=== PATIENT | female | born 1980 | race Caucasian/White ===

== ENCOUNTER 2020-10-14 14:57 | Outpatient (REF) | payer OTHER, SELFPAY ==
--- NOTE | ~2020-10-14 | US_ITS ---
EXAMINATION: US DIAGNOSTIC ULTRASOUND BREAST, LEFT CLINICAL INFORMATION: Lump superiorly. COMPARISON: Mammography of same day. TECHNIQUE: Ultrasound of the breast is performed with real-time knight scale imaging and color Doppler. FINDINGS: Targeted left breast ultrasound superior aspect did not demonstrate any abnormal cystic or solid mass. No region of abnormal distal sound shadowing appreciated. There is large amount of this breast parenchyma present. Results are provided to the patient at time of visit by the technologist. US/US breast LT limited IMPRESSION: No mammographic or ultrasound findings to suggest malignancy. ASSESSMENT: BI-RADS 1: Negative RECOMMENDATION: Clinical follow-up
--- NOTE | ~2020-10-14 | MM_ITS ---
EXAMINATION: MM DIAGNOSTIC DIGITAL TOMOSYNTHESIS, BILATERAL US TARGETED BREAST, LEFT CLINICAL INFORMATION: Left breast lump superiorly. The lifetime risk of breast cancer based on the Tyrer-Cuzick Model is 10.5%. COMPARISON: Mammography: None TECHNIQUE: Digital breast tomosynthesis is performed in both the craniocaudal and mediolateral oblique views along with computer-aided detection (CAD). Synthesized 2D images are generated from the tomosynthesis. Targeted left breast ultrasound. FINDINGS: The breasts are extremely dense, which lowers the sensitivity of mammography (ACR BI-RADS breast composition category D). There are no significant masses, abnormal calcifications, or other abnormalities. Targeted left breast ultrasound superior aspect did not demonstrate any abnormal cystic or solid mass. No region of abnormal distal sound shadowing appreciated. There is a large amount of dense breast parenchyma present. Results are provided to the patient at time of visit by the technologist. MM/MM tomosynthesis diagnostic BI IMPRESSION: No mammographic or ultrasound findings to suggest malignancy. ASSESSMENT: BI-RADS 1: Negative RECOMMENDATION: Clinical follow up. This patient's information was entered into a reminder system with a target due date for their next mammogram.
== END 2020-10-14 14:58 | disposition home or self-care (01) ==
LOC: HO.MAMMO 14:57
PROVIDERS: Visit Provider Internal Medicine
DX: N63.25 Unspecified lump in the left breast, overlapping quadrants (principal)
CPT/HCPCS: 76642; 77062; 77066

== ENCOUNTER 2020-10-29 08:01 | Outpatient (REF) | payer OTHER, SELFPAY ==
[2020-10-31 20:52] LABS: HPV mRNA E6/E7 rflx Not Detected (Not Detected)
== END 2020-10-29 08:02 | disposition home or self-care (01) ==
LOC: HO.LAB 08:01
PROVIDERS: PCP Internal Medicine; Visit Provider Advanced Practice Midwife
DX: Z01.419 Encounter for gynecological examination (general) (routine) without abnormal findings (principal); E66.01 Morbid (severe) obesity due to excess calories; Z68.41 Body mass index [BMI] 40.0-44.9, adult
CPT/HCPCS: 87624; 88142

== ENCOUNTER 2020-12-05 14:40 | Emergency (ER) | payer OTHER, SELFPAY ==
[2020-12-05 16:20] VITALS: BP 146/88; PULSE 89; RESP 18; TEMP 36.3; O2SAT 100; BMI 39.0
[2020-12-05] MEDS: Ketorolac Tromethamine 60 MG/2 ML VIAL IM (19:16)
--- NOTE | 2020-12-05 19:28 | ED.EXTPRO ---
HPI - Extremity Problem General Chief complaint: Extremity Injury, Lower Stated complaint: foot pain Time Seen by Provider: 12/05/20 18:25 Source: patient and family Mode of arrival: ambulatory Limitations: no limitations History of Present Illness HPI Narrative: 40 y/o female with history of severe refractory plantar fasciitis, currently followed by Podiatry who presents to the ER with worsening left foot pain due to plantar fasciitis. 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 She is followed by a Special Population Paraprofessional and following all of their recommendations without improvement. She previously got cortisone injections with improvement but her new Special Population Paraprofessional did not want to do that initially. She has a follow up appointment with them next week. She denies any new injuries. MD Complaint: extremity pain Onset (ago): day(s) Pain Consistency: constant Location: left and lower extremity Quality: burning, stabbing and aching Radiation: proximal Relieving factors: rest Exacerbating factors: weight bearing, walking and exertion Associated symptoms: denies other symptoms Related Data Previous Rx's Medication Instructions Recorded escitalopram oxalate 10 mg tablet 10 mg PO DAILY 90 Days #90 tab 11/02/20 Allergies Allergy/AdvReac Type Severity Reaction Status Date / Time latex [Latex] Allergy Intermediate ITCH/RASH Verified 10/29/20 08:11 Review of Systems Review of Systems: Constitutional: No Fever, No Chills Gastrointestinal: No Nausea, No Vomiting Musculoskeletal: + joint pain, + Myalgias Skin: No Skin Lesions, No rash Neuro: No Weakness, No Numbness, No Dizziness, No Headache Psych: No Anxiety/Panic, No Depression Heme/Lymph: No Bruising, No Lymphadenopathy Endocrine: No Polyuria, No Polydipsia PMFSH Past Medical History Medical History History of anxiety Morbid obesity with BMI of 40.0-44.9, adult Surgical History History of loop electrosurgical excision procedure (LEEP) Social History Social History Advance Directives: No Advance Directives Information Provided: Yes Physical Exam Vital Signs: Vital Signs: Last Vital Signs Temp 97.4 F 12/05/20 16:20 Pulse 89 12/05/20 16:20 Resp 18 12/05/20 16:20 BP 146/88 H 12/05/20 16:20 Pulse Ox 100 12/05/20 16:20 Body Mass Index 39.0 Appearance: Alert. Oriented X3. In pain. HEENT: normal inspection CVS: Normal heart rate and rhythm. Pulses normal. Respiratory: No respiratory distress. Skin: Skin warm and dry. Normal skin color. Normal skin turgor. No rashes. Extremities: left foot with normal inspection. tenderness throughout the calcaneous and ball of foot. no deformity, no point tenderness, no swelling, no ecchymosis. NV intact distally. Neuro: Oriented X 3. No motor deficit. No sensory deficit. Amulates with limp Course Course Course Narrative: 40 y/o female presenting with acute on chronic plantar fasciitis. Requesting injections and walking boot. Advised to f/u with Special Population Paraprofessional for injection. Boot provided. Pt counseled on REST. Stable for d/c. Discharge Plan Discharge Clinical Impression: Plantar fasciitis of left foot Patient Disposition: Home, Self-Care Instructions: Plantar Fasciitis (ED), Plantar Fasciitis Exercises (ED) Additional Instructions: REST. Stay off of your feet as much as possible. Recommend trial of walking boot for support. Recommend trial of prescribed anti-inflammatory medication. Follow up with Podiatry as soon as possible for evaluation of injection treatment Prescriptions: No Action escitalopram oxalate 10 mg tablet 10 mg PO DAILY 90 Days Qty: 90 RF: 0 Stand Alone Forms: Work/School Release Interventions: ED Discharge Assessment Last Done: 12/05/20 19:38 Discharge Date/Time: 12/05/20 19:39
== END 2020-12-05 19:39 | disposition home or self-care (01) ==
PROVIDERS: Emergency Provider Emergency Medicine; PCP Internal Medicine
DX: M72.2 Plantar fascial fibromatosis (principal); M79.672 Pain in left foot
CPT/HCPCS: 96372; 99283; J1885

== ENCOUNTER 2020-12-26 11:39 | Outpatient (REF) | payer OTHER, SELFPAY ==
[2020-12-26 14:31] LABS: MANUAL DIFF FLAG NO
[2020-12-26 14:48] LABS: Basophils Absolute Auto 0.1 X10*3/uL (0.0-0.2); Basophils Percent Auto 0.5 % (0-2); Eosinophils Absolute Auto 0.3 X10*3/uL (0.0-0.4); Eosinophils Percent Auto 2.3 % (0-4); Hematocrit 39.9 % (37-47); Hemoglobin 12.9 g/dl (12.0-16.0); Imm Gran Abs Auto 0.11 X10*3/uL (0.00-0.03); Imm Gran Pct Auto 0.9 % (0.0-0.4); Lymphocytes Percent Auto 24.6 % (20-40); Mean Corpuscular HGB Conc 32.3 g/dl (31.0-35.0); Mean Corpuscular Hemoglobin 32.3 pg (27.0-33.0); Mean Corpuscular Volume 99.8 fL (80-98); Mean Platelet Volume 10.1 fL (9.4-12.3); Monocytes Absolute Auto 0.5 X10*3/uL (0.1-1.2); Monocytes Percent Auto 3.9 % (2-11); Neutrophils Absolute Auto 8.2 X10*3/uL (2.0-8.3); Neutrophils Percent Auto 67.8 % (45-73); Platelet Count 356 X10*3/uL (160-400); Red Cell Distribution Width 14.4 % (11.0-16.0); White Blood Count 12.1 X10*3/uL (4.8-10.8)
[2020-12-26 15:01] LABS: Alanine Aminotransferase 39 U/L (0-31); Alkaline Phosphatase 79 U/L (39-117); Anion Gap 11 (12-20); Aspartate Amino Transferase 25 U/L (5-31); Bilirubin Total 0.7 mg/dL (0.0-1.0); Blood Urea Nitrogen 6 mg/dL (9-16); Calcium 8.9 mg/dL (8.4-10.2); Carbon Dioxide 26 mmol/L (22-29); Chloride 103 mmol/L (96-108); Cholesterol 209 mg/dL; Estimated Glomerular Filt Rate > 60; Glucose Fasting 81 mg/dL (60-99); HDL Cholesterol 33 mg/dL; LDL Cholesterol Calculated 144 mg/dl; Potassium 4.4 mmol/L (3.3-5.1); Sodium 136 mmol/L (135-145); Total Protein 6.6 g/dL (6.5-8.0); Triglycerides 160 mg/dL
[2020-12-26 15:25] LABS: TSH reflex Free T4 1.59 uIU/mL (0.32-4.0)
== END 2020-12-26 11:40 | disposition home or self-care (01) ==
LOC: HO.HMGCLDS 11:39
PROVIDERS: PCP Internal Medicine; Visit Provider Internal Medicine
DX: Z00.01 Encounter for general adult medical examination with abnormal findings (principal); E66.01 Morbid (severe) obesity due to excess calories; M79.672 Pain in left foot; N63.25 Unspecified lump in the left breast, overlapping quadrants
CPT/HCPCS: 36415; 80053; 80061; 84443; 85025

== ENCOUNTER 2021-12-31 20:26 | Emergency (ER) | payer OTHER, SELFPAY ==
--- NOTE | ~2021-12-31 | XR_ITS ---
EXAMINATION: XR CHEST CLINICAL INFORMATION: Back and chest pain COMPARISON: None TECHNIQUE: 2 views of the chest were obtained. FINDINGS: The lungs are clear. No airspace consolidation, pleural effusion, or pneumothorax. The cardiomediastinal silhouette is within normal limits. No mediastinal widening. No acute osseous injury. XR/XR chest 2V IMPRESSION: No acute pulmonary process. No acute fracture identified.
[2021-12-31 20:55] VITALS: BP 163/95; PULSE 90; RESP 18; TEMP 36.8; O2SAT 98; BMI 39.0
--- NOTE | 2021-12-31 20:59 | ECG_ITS ---
Test Reason : chest pain Blood Pressure : / mmHG Vent. Rate : 088 BPM Atrial Rate : 088 BPM P-R Int : 126 ms QRS Dur : 074 ms QT Int : 356 ms P-R-T Axes : 033 000 017 degrees QTc Int : 430 ms Normal sinus rhythm Normal ECG When compared with ECG of 09-APR-2015 21:47, No significant change was found Referred By: Generic ED Physician Electronically Signed By:Jarrett Page
[2021-12-31 21:13] LABS: MANUAL DIFF FLAG NO
[2021-12-31 21:14] LABS: Basophils Absolute Auto 0.1 X10*3/uL (0.0-0.2); Basophils Percent Auto 0.6 % (0-2); Eosinophils Absolute Auto 0.2 X10*3/uL (0.0-0.4); Eosinophils Percent Auto 2.2 % (0-4); Hematocrit 37.6 % (37.0-47.0); Hemoglobin 12.7 g/dl (12.0-16.0); Imm Gran Abs Auto 0.07 X10*3/uL (0.00-0.03); Imm Gran Pct Auto 0.7 % (0.0-0.4); Lymphocytes Absolute Auto 3.2 X10*3/uL (1.2-4.9); Lymphocytes Percent Auto 30.2 % (20-40); Mean Corpuscular HGB Conc 33.8 g/dl (31.0-35.0); Mean Corpuscular Hemoglobin 33.9 pg (27.0-33.0); Mean Corpuscular Volume 100.3 fL (80.0-98.0); Mean Platelet Volume 9.4 fL (9.4-12.3); Monocytes Absolute Auto 0.5 X10*3/uL (0.1-1.2); Monocytes Percent Auto 4.4 % (2-11); Neutrophils Absolute Auto 6.5 x10*3/uL (2.0-8.3); Neutrophils Percent Auto 61.9 % (45-73); Platelet Count 316 X10*3/uL (160-400); Red Blood Count 3.75 X10*6/uL (4.20-5.50); Red Cell Distribution Width 13.2 % (11.0-16.0); White Blood Count 10.5 X10*3/uL (4.8-10.8)
[2021-12-31 21:36] LABS: COVID-19 Test Negative (Negative)
[2021-12-31 21:44] LABS: Alanine Aminotransferase 76 U/L (0-31); Albumin Level 4.1 g/dL (3.5-5.0); Alkaline Phosphatase 65 U/L (39-117); Anion Gap 12 (12-20); Aspartate Amino Transferase 46 U/L (5-31); Bilirubin Total 0.8 mg/dL (0.0-1.0); Blood Urea Nitrogen 10 mg/dL (9-16); Calcium 9.6 mg/dL (8.4-10.2); Carbon Dioxide 25 mmol/L (22-29); Chloride 102 mmol/L (96-108); Creatinine Clr Calc Pharmacy 81.5; Estimated Glomerular Filt Rate > 60; Glucose Random 97 mg/dL (60-115); Potassium 3.9 mmol/L (3.3-5.1); Sodium 135 mmol/L (135-145)
[2021-12-31 21:50] LABS: Troponin-I High Sensitivity < 3.5 ng/L (<3.5-17.0)
--- NOTE | 2021-12-31 21:58 | ED_ITS ---
HPI - Back Pain/Injury General Chief Complaint: Back Pain/Injury Stated Complaint: upper back pain, anxiety Time Seen by Provider: 12/31/21 21:57 Source: patient Mode of arrival: ambulatory Limitations: no limitations History of Present Illness HPI Narrative: Patient has history of anxiety no known history of coronary artery disease comes here for muscular sharp pain in the upper back started earlier today lasted only for few minutes no pain at this time no shortness of breath no chest pain no diaphoresis no nausea or vomiting Related Data Previous Rx's Medication Instructions Recorded buspirone 10 mg tablet 10 mg PO ONCE PRN anxiety 90 days 11/20/21 #90 tabs escitalopram oxalate 20 mg tablet 20 mg PO DAILY 90 days #90 tabs 11/27/21 Allergies Allergy/AdvReac Type Severity Reaction Status Date / Time latex [Latex] Allergy Intermediate ITCH/RASH Verified 12/31/21 20:55 acetaminophen [From Vicodin] Allergy Vomiting Verified 12/31/21 20:55 hydrocodone [From Vicodin] Allergy Vomiting Verified 12/31/21 20:55 morphine Allergy Agitated Verified 12/31/21 20:55 Review of Systems Review of Systems: Yes all other systems are reviewed and are negative [facility] Past Medical History Medical History History of anxiety Surgical History History of loop electrosurgical excision procedure (LEEP) Social History Social History Housing: House Alcohol intake: current Alcohol intake frequency: 0-2 drinks per day Patient Tobacco Use Status: Current everyday Tobacco user Cigarettes Per Day: 5 Years Smoked: 16 Advance Directives: No Advance Directives Information Provided: No Current occupational status: employed Physical Exam Vital Signs: Vital Signs: Last Vital Signs Temp 98.2 F 12/31/21 20:55 Pulse 90 12/31/21 20:55 Resp 18 12/31/21 20:55 BP 163/95 H 12/31/21 20:55 Pulse Ox 98 12/31/21 20:55 O2 Del Method 12/31/21 20:55 BMI result Body Mass Index 39.0 Appearance: Alert. Oriented X3. No acute distress. Eyes: PERRLA, No Nystagmus ENT: Pharynx normal. Oral Mucosa moist Neck: Normal inspection. Neck supple. CVS: Normal heart rate and rhythm. Pulses normal. Respiratory: No respiratory distress. Equal air entry bilateral, no wheezing/rales/rhonchi Abdomen: Soft and nontender. Bowel sounds are present, no mass palpable, no CVA tenderness no pulsatile mass Skin: Skin warm and dry. Normal skin color. Normal skin turgor. Extremities: No lower extremity edema. No calf tenderness Neuro: Oriented X 3. No motor deficit. No sensory deficit.No cerebellar signs , cranial nerves II-XII intact MDM - Back Pain/Injury MDM Narrative Medical decision making narrative: Patient likely with muscular pain cardiac enzymes negative no pain at this time Lab Data Attestation: I reviewed the patient's lab results. Result diagrams: 12/31/21 21:08 12/31/21 21:08 Labs: Lab Results 12/31/21 12/31/21 12/31/21 Range/Units 21:08 21:08 21:08 WBC 10.5 (4.8-10.8) X10*3/uL RBC 3.75 L (4.20-5.50) X10*6/uL Hgb 12.7 (12.0-16.0) g/dl Hct 37.6 (37.0-47.0) % MCV 100.3 H (80.0-98.0) fL MCH 33.9 H (27.0-33.0) pg MCHC 33.8 (31.0-35.0) g/dl RDW 13.2 (11.0-16.0) % Plt Count 316 (160-400) X10*3/uL MPV 9.4 (9.4-12.3) fL Immature Gran % (Auto) 0.7 H (0.0-0.4) % Neut % (Auto) 61.9 (45-73) % Lymph % (Auto) 30.2 (20-40) % [place] % (Auto) 4.4 (2-11) % Eos % (Auto) 2.2 (0-4) % Baso % (Auto) 0.6 (0-2) % Lymph # (Auto) 3.2 (1.2-4.9) X10*3/uL [place] # (Auto) 0.5 (0.1-1.2) X10*3/uL Eos # (Auto) 0.2 (0.0-0.4) X10*3/uL Baso # (Auto) 0.1 (0.0-0.2) X10*3/uL Abs Immat Gran (auto) 0.07 H (0.00-0.03) X10*3/uL Absolute Neuts (auto) 6.5 (2.0-8.3) x10*3/uL Absolute Nucleated RBC 0.000 (0.0-0.012) X10*3/uL Nucleated RBC % (auto) 0.0 (0.0-0.2) /100WBC Sodium 135 (135-145) mmol/L Potassium 3.9 (3.3-5.1) mmol/L Chloride 102 (96-108) mmol/L Carbon Dioxide 25 (22-29) mmol/L Anion Gap 12 (12-20) BUN 10 (9-16) mg/dL Creatinine 0.93 (0.5-1.4) mg/dL Estim Creat Clear Calc 81.5 Estimated GFR > 60 Random Glucose 97 (60-115) mg/dL Calcium 9.6 D (8.4-10.2) mg/dL Total Bilirubin 0.8 (0.0-1.0) mg/dL AST 46 H D (5-31) U/L ALT 76 H (0-31) U/L Alkaline Phosphatase 65 (39-117) U/L Troponin I High Sens < 3.5 (<3.5-17.0) ng/L Total Protein 7.0 (6.5-8.0) g/dL Albumin 4.1 (3.5-5.0) g/dL COVID-19 (VISHNU) (Negative) COVID-19 Clin Com 12/31/21 Range/Units 21:08 WBC (4.8-10.8) X10*3/uL RBC (4.20-5.50) X10*6/uL Hgb (12.0-16.0) g/dl Hct (37.0-47.0) % MCV (80.0-98.0) fL MCH (27.0-33.0) pg MCHC (31.0-35.0) g/dl RDW (11.0-16.0) % Plt Count (160-400) X10*3/uL MPV (9.4-12.3) fL Immature Gran % (Auto) (0.0-0.4) % Neut % (Auto) (45-73) % Lymph % (Auto) (20-40) % [place] % (Auto) (2-11) % Eos % (Auto) (0-4) % Baso % (Auto) (0-2) % Lymph # (Auto) (1.2-4.9) X10*3/uL [place] # (Auto) (0.1-1.2) X10*3/uL Eos # (Auto) (0.0-0.4) X10*3/uL Baso # (Auto) (0.0-0.2) X10*3/uL Abs Immat Gran (auto) (0.00-0.03) X10*3/uL Absolute Neuts (auto) (2.0-8.3) x10*3/uL Absolute Nucleated RBC (0.0-0.012) X10*3/uL Nucleated RBC % (auto) (0.0-0.2) /100WBC Sodium (135-145) mmol/L Potassium (3.3-5.1) mmol/L Chloride (96-108) mmol/L Carbon Dioxide (22-29) mmol/L Anion Gap (12-20) BUN (9-16) mg/dL Creatinine (0.5-1.4) mg/dL Estim Creat Clear Calc Estimated GFR Random Glucose (60-115) mg/dL Calcium (8.4-10.2) mg/dL Total Bilirubin (0.0-1.0) mg/dL AST (5-31) U/L ALT (0-31) U/L Alkaline Phosphatase (39-117) U/L Troponin I High Sens (<3.5-17.0) ng/L Total Protein (6.5-8.0) g/dL Albumin (3.5-5.0) g/dL COVID-19 ([facility]ISHNU) Negative (Negative) COVID-19 Clin Com See Note ECG Data Attestation: I personally reviewed and interpreted this ECG as follows: Interpretation: Normal sinus rhythm heart rate 88 beats per minute normal interval normal axis no acute ST wave changes no acute skin Discharge Plan Discharge Clinical Impression: Thoracic back pain Patient Disposition: Home, Self-Care Instructions: Thoracic Pain (ED) Additional Instructions: report to ed /pcp if any concern likely you had muscular pain Prescriptions: No Action buspirone 10 mg tablet 10 mg PO ONCE PRN (Reason: anxiety) 90 Days Qty: 90 0RF escitalopram oxalate 20 mg tablet 20 mg PO DAILY 90 Days Qty: 90 0RF
[2021-12-31 22:29] VITALS: BP 168/85; PULSE 83; RESP 14; O2SAT 99
== END 2021-12-31 22:31 | disposition home or self-care (01) ==
PROVIDERS: Emergency Provider Internal Medicine; PCP Internal Medicine
DX: M54.6 Pain in thoracic spine (principal); Z20.822 Contact with and (suspected) exposure to COVID-19; F17.200 Nicotine dependence, unspecified, uncomplicated
CPT/HCPCS: 71046; 80053; 84484; 85025; 87635; 93005; 99283; 99284

== ENCOUNTER 2025-01-07 15:41 | Outpatient (AMB) | payer OTHER, SELFPAY ==
--- NOTE | 2025-01-07 15:50 | MHC.PC.OV ---
Vital Signs 01/07/25 15:52 Height 5 ft 0.63 in Weight 210 lb BMI 40.2 BP 146/80 H Blood Pressure Location Lt brachial Position Sitting Pulse 98 Pulse Source Pulse Oximeter Temp 97.1 F Temp Source Temporal Artery Scan Pulse Oximetry (%) 98 Oxygen Delivery Method Room Air Intake Visit Reasons: TONI DR Mejia Intake Note: Patient is here today for TONI from Dr Mejia [employer] Maintenance Required: No Senior Trainer: Present Accompanied by: Mother Allergies latex (Latex) Allergy (Intermediate, Verified 01/07/25 16:10) ITCH/RASH acetaminophen (From Vicodin) Allergy (Verified 01/07/25 16:10) Vomiting hydrocodone (From Vicodin) Allergy (Verified 01/07/25 16:10) Vomiting morphine Allergy (Verified 01/07/25 16:10) Agitated Medication List - Last Reconciled 01/07/25 by Leela Garcia PA-C loratadine (Allergy Relief (loratadine)) 10 mg PO DAILY PRN Tobacco use date assessed: 01/07/25 Dental Screening Dental Screen Date: 01/07/25 Did you have a dental visit in the last 12 months?: Yes Did you have a dental problem in the last 6 months where you did not have access to dental care?: No Was dental information given to patient?: Patient has dentist HPI TONI DR Mejia HPI Details 44 year old female with past medical history anxiety, LFT elevation, tobacco use disorder last seen by 09/[address] Mejia coming in for TONI. Presenting for management of anxiety and evaluation of elevated liver function tests. The patient experiences anxiety frequently, with full-blown anxiety attacks occurring approximately once every six months. She prefers medication that can be taken as needed rather than daily but does note she will likley need the medication daily. She has taken escitalopram and BuSpar in the past without good benefit. History of avascular necrosis of the left talus Diagnosed after prolonged foot pain and a history of plantar fasciitis, the patient underwent talus replacement surgery approximately two years ago. The condition still causes pain and difficulty walking. The patient smokes approximately six cigarettes per day and has no interest in quitting. The patient reports persistent eczema, which has been difficult to manage with [id number] treatments. Acid reflux is managed with Pepcid, the patient prefers not to use omeprazole due to concerns about potential side effects. FORMERLY [facility], [facility] Medical History Breast lump on left side at 12 o'clock position Morbid obesity with BMI of 40.0-44.9, adult History of anxiety Surgical History H/O foot surgery History of loop electrosurgical excision procedure (LEEP) Social History Housing: House Alcohol intake: current Alcohol intake frequency: a few times a month Patient Tobacco Use Status: Current everyday Tobacco user Tobacco use type: Cigarette Cigarette Packs Per Day: 0.5 Cigarettes Per Day: 6 Years Smoked: 16 e-Cigarette/Vaping Use: Never Used Second Hand Smoke Exposure: Yes service: No Current occupational status: employed Cognitive needs: No Hearing needs: No Vision needs: No Questionnaire PHQ-9 Over the last 2 weeks, how often have you been bothered by any of the following problems? 1. Little interest or pleasure in doing things: not at all 2. Feeling down, depressed, or hopeless: not at all 3. Trouble falling or staying asleep, or sleeping too much: not at all 4. Feeling tired or having little energy: not at all 5. Poor appetite or overeating: not at all 6. Feeling bad about yourself - or that you are a failure or have let yourself or your family down: not at all 7. Trouble concentrating on things, such as reading the newspaper or watching television: not at all 8. Moving or speaking so slowly that other people could have noticed. Or the opposite - being so fidgety or restless that you have been moving around a lot more than usual: not at all 9. Thoughts that you would be better off or of hurting yourself in some way: not at all Total score: 0 Depression Screening Interpretation: Negative Depression Screening Done: Yes 73930 - PHQ-9 Billing: Yes Source: Developed by Drs. Lupillo Anderson, Adwoa Kay, Margarito José and colleagues, with an educational zackary from [employer]. Thrive Questionnaire Date Thrive assessed: 12/31/24 I am a: Patient What is your living situation today?: I have a steady place to live Within the past 12 months, did the food you bought not last and you didn't have the money to get more?: Never true Within the past 12 months, did you worry whether your food would run out before you got money to buy more?: Never true Do you have trouble paying for medicines?: No Do you have trouble getting transportation to medical appointments?: No Do you have trouble paying your heating and electricity bill?: No Do you have trouble taking care of your child, family member or friend?: No Do you have trouble with day-to-day activities such as bathing, preparing meals, shopping, managing finances, etc.?: No Are you currently unemployed and looking for a job?: No Are you interested in more education?: No Please select the resources that you would like help with: None Currently or been in a relationship where the following occur: No concerns reported THRIVE Score: 0 AUDIT C Alcohol Use Questionnaire (AUDIT-C) 1. How often do you have a drink containing alcohol?: 2-4 times a month 2. How many drinks containing alcohol do you have on a typical day when you are drinking?: 3 or 4 3. How often do you have six or more drinks on one occasion?: Less than monthly Total Score: 4 Score Reviewed/Action Taken: Yes JUAN JOSÉ-7 AMB Questionnaire JUAN JOSÉ-7 Date JUAN JOSÉ - 7 assessed: 01/07/25 Feeling nervous, anxious, or on edge: 1 = Several days Not being able to stop or control worryin = Not at all Worrying too much about different things: 0 = Not at all Trouble relaxin = Not at all Being so restless that it is hard to sit still: 0 = Not at all Becoming easily annoyed or irritable: 0 = Not at all Feeling afraid as if something awful might happen: 1 = Several days Total JUAN JOSÉ-7 score (0-4 normal; 5-9 mild; 10-14 moderate; 15-21 severe): 2 Source: Developed by Drs. Lupillo Anderson, Adwoa Kay, Margarito José and colleagues, with an educational zackary from [employer]. JUAN JOSÉ-7 Assessment Billing JUAN JOSÉ-7 Assessment Tool: JUAN JOSÉ-7 Assessment 14620 Review of Systems Const Denies body aches, Denies chills, Denies fever(s), Denies headache(s) and Denies poor appetite Eyes Reports no additional complaints ENT Denies dysphagia, Denies dizziness, Denies headache(s) and Denies odynophagia Card Denies chest pain, Denies syncope, Denies edema, Denies irregular heart rhythm, Denies lightheadedness and Denies dyspnea Resp Denies cough and Denies dyspnea GI Denies abdominal pain, Denies constipation, Denies dysphagia, Denies diarrhea, Denies nausea, Denies odynophagia and Denies vomiting Reports no additional complaints Musc Reports no additional complaints and Denies abnormal gait Skin/Breast Reports system reviewed and no additional complaints, except as documented Neuro Denies abnormal gait, Denies dizziness, Denies syncope and Denies headache(s) Psych Reports no additional complaints Physical exam (Primary Care) Vital Signs: Last Vital Signs Temp 97.1 F 01/07/25 15:52 Pulse 98 01/07/25 15:52 BP 146/80 H 01/07/25 15:52 Pulse Ox 98 01/07/25 15:52 Oxygen Delivery Method Room Air 01/07/25 15:52 BMI result Body Mass Index 40.2 Tobacco/Smoking Status: Tobacco use Status Tobacco use date assessed 01/07/25 01/07/25 16:00 Patient Tobacco Use Status Current everyday Tobacco 01/07/25 16:00 Tobacco use type Cigarette 01/07/25 16:00 e-Cigarette/Vaping Use Never Used 01/07/25 16:00 PHQ-9: PHQ-9 Score PHQ-9: Total score 0 01/07/25 16:13 Depression Screening Interpretation: Negative Thrive Assessment: Date of Thrive Assessment Date Thrive assessed 12/31/24 01/07/25 16:00 Currently or been in a relationship where the following occur: No concerns reported Const General: cooperative, healthy appearing, comfortable and no acute distress Orientation/consciousness: patient oriented x3 HENMT Head: Yes normocephalic Ears: hearing grossly normal bilaterally General nose exam: Normal external nose present Eyes General: appearance normal, both eyes and all related structures Conjunctivae: conjunctivae normal Neck Neck: Yes full ROM and Yes no lymphadenopathy Resp Effort & Inspection: normal respiratory effort Auscultation: clear to auscultation bilaterally, no crackles, no rales, no rhonchi and no wheezes Cardio Rate: regular rate Rhythm: regular rhythm Skin General skin exam: no rashes or lesions noted Neuro General: patient oriented x3 Gait exam (Neuro): Normal gait present Extrem General: Yes normal to inspection, Yes full ROM and No edema Psych Affect: normal affect Attitude: cooperative Insight: Good insight present (Psych) Judgement: Good judgement present (Psych) Coding Level of Care Code Est Pt Level 4 (14890) Diagnoses Anxiety, generalized F41.1 Possible alcohol use disorder on screening for alcoholism Z13.39 Morbid obesity with BMI of 40.0-44.9, adult E66.01; Z68.41 LFT elevation R79.89 Tobacco use disorder F17.200 Elevated blood pressure reading without diagnosis of hypertension R03.0 Screening for hypercholesterolemia Z13.220 Fatigue R53.83 Eczema L30.9 Additional Codes JUAN JOSÉ-7 Assessment Billing - JUAN JOSÉ-7 Assessment Tool: JUAN JOSÉ-7 Assessment 29734 ([id number]) PHQ-9 - 13169 - PHQ-9 Billing: Yes ([id number]) Assessment & Plan Assessment & Plan (1) Anxiety, generalized: Code(s): F41.1 - Generalized anxiety disorder Category: Medical Plan: Patient having generalized anxiety disorder she is declining SSRIs at this time and has a history of BuSpar use which was not beneficial for her. I discussed possible options including but not limited to; Wellbutrin, hydroxyzine as well as propranolol. Patient does not want anything that could potentially make her drowsy or affect her mood. I discussed benzodiazepines are not appropriate for long-term use and thus she is not a candidate as she would be using the medication almost daily. She would like to try propranolol at this time. I did discuss with the patient that propranolol we will only work on her heart rate and we will not work on ruminating thoughts or other aspects of anxiety. She states a large portion of her anxiety stems from her heart rate this is will rise with her anxiety. Given the potential for elevated blood pressure this is good for co treatment. Plan to follow up in 2 months (2) Possible alcohol use disorder on screening for alcoholism: Comment: CONSEQUENCES OF DRINKING PROBLEMS There are a number of serious consequences of drinking alcohol excessively -------Excessive alcohol consumption is a leading preventable cause of in the [place]. --------Drinking alcohol increases the risk of traffic accidents, suicide, drowning, and other serious injuries. -------Alcohol use continues to be the leading cause of injuries treated in trauma centers and emergency departments . --------Alcohol-related liver disease may lead to end-stage liver disease (cirrhosis) and . -------Alcohol increases the risk of certain cancers of the mouth, esophagus, throat, liver, and breast. Code(s): Z13.39 - Encounter for screening examination for other mental health and behavioral disorders Category: Medical Plan: Denies excessive alcohol use. (3) Morbid obesity with BMI of 40.0-44.9, adult: Code(s): E66.01 - Morbid (severe) obesity due to excess calories; Z68.41 - Body mass index [BMI] 40.0-44.9, adult Category: Medical Plan: Healthy diet and regular exercise is encouraged. (4) LFT elevation: Code(s): R79.89 - Other specified abnormal findings of blood chemistry Category: Medical Plan: LFTs elevated on last blood work. Plan to obtain new blood work. Consider hepatitis panel and/or abdominal ultrasound if remained elevated. (5) Tobacco use disorder: Code(s): F17.200 - Nicotine dependence, unspecified, uncomplicated Category: Medical Plan: Smoking cigarettes and the use of tobacco can be harmful. We discussed the importance of stopping and options to aid in smoking cessation. Declining nicotine replacement therapy and medical management at this time (6) Elevated blood pressure reading without diagnosis of hypertension: Code(s): R03.0 - Elevated blood-pressure reading, without diagnosis of hypertension Category: Medical Plan: Blood pressure elevated in the office today she does not want to take the blood pressure at home as she feels it we will increase her anxiety. Plan to follow up in 6 weeks and started on low-dose propranolol for co treatment of anxiety and blood pressure. Avoid salt intake and encourage healthy diet and regular exercise. (7) Screening for hypercholesterolemia: Code(s): Z13.220 - Encounter for screening for lipoid disorders Category: Medical Plan: Blood work ordered (8) Fatigue: Code(s): R53.83 - Other fatigue Category: Medical Plan: Patient complaining of fatigue. She is declining sleep study today. Blood work is ordered for further evaluation. She mentioned she sleeps very well and denies waking up short of breath or coughing. (9) Eczema: Code(s): L30.9 - Dermatitis, unspecified Category: Medical Plan: Advised the continued use of topical emollients such as Aquaphor and Eucerin. Prescription was sent for topical steroid as well to be use no longer than 2 weeks at a time. Plan The patient will be started on propranolol for anxiety management, with instructions to monitor for any side effects such as dizziness or lightheadedness. Propranolol is also expected to assist with blood pressure management, although it is not primarily indicated for this purpose. The patient is advised to take the medication twice daily and to report any adverse effects or lack of efficacy. Blood work has been ordered to assess cholesterol and thyroid levels, as well as to monitor liver function. The patient is advised to fast for 8 to 10 hours prior to the blood draw. The results will be reviewed in a follow-up appointment scheduled for six weeks. For eczema management, a prescription cream will be provided, with instructions to use it for no longer than two weeks at a time to avoid skin thinning and pigmentation changes. The patient is also advised to maintain hydration and consider dietary adjustments to manage acid reflux and liver health. This note was constructed using voice recognition software. While every effort has been made to ensure accuracy and silo man, still areas may have been included sometimes these areas may affect the content or meeting of the given symptoms. Total time spent caring for the patient today was 45 minutes. This includes time spent before the visit reviewing the chart, time spent during the visit, and time spent after the visit and documentation. Patient was informed and verbally consented to the use of an ambient scribe for clinic note documentation during this visit. Orders: Orders TSH reflex Free T4 01/07/25 F41.1 - Generalized anxiety disorder, Z00.00 - Encounter for general adult medical examination without abnormal findings Free T4 (Free Thyroxine) 01/07/25 F41.1 - Generalized anxiety disorder, Z00.00 - Encounter for general adult medical examination without abnormal findings Vitamin B12 and Folate 01/07/25 F41.1 - Generalized anxiety disorder, Z13.21 - Encounter for screening for nutritional disorder Vitamin D 25-OH Total 01/07/25 F41.1 - Generalized anxiety disorder, Z00.00 - Encounter for general adult medical examination without abnormal findings Lipid Panel 01/07/25 E66.01 - Morbid (severe) obesity due to excess calories, Z13.220 - Encounter for screening for lipoid disorders, Z68.41 - Body mass index [BMI] 40.0-44.9, adult IRON PROFILE 01/07/25 R53.83 - Other fatigue Comprehensive Met. Panel 01/07/25 R79.89 - Other specified abnormal findings of blood chemistry, Z00.00 - Encounter for general adult medical examination without abnormal findings Complete Blood Count Auto Diff 01/07/25 E66.01 - Morbid (severe) obesity due to excess calories, Z00.00 - Encounter for general adult medical examination without abnormal findings, Z68.41 - Body mass index [BMI] 40.0-44.9, adult Hemoglobin A1c 01/07/25 E66.01 - Morbid (severe) obesity due to excess calories, Z13.1 - Encounter for screening for diabetes mellitus, Z68.41 - Body mass index [BMI] 40.0-44.9, adult Medications: New propranolol 10 mg PO BID 60 tabs 0RF triamcinolone acetonide 0.1% 1 appl topical DAILY 30 grams 0RF famotidine 20 mg PO BEDTIME 90 tabs 0RF Refilled loratadine (Allergy Relief (loratadine)) 10 mg PO DAILY PRN 90 tabs 3RF allergy symptoms
[2025-01-07 15:52] VITALS: BP 146/80; PULSE 98; TEMP 36.2; O2SAT 98; BMI 40.2
== END 2025-01-07 16:52 | disposition home or self-care (01) ==
LOC: HO.HMCH 15:42
DX: F41.1 Generalized anxiety disorder (principal); Z13.39 Encounter for screening examination for other mental health and behavioral disorders; E66.01 Morbid (severe) obesity due to excess calories; Z68.41 Body mass index [BMI] 40.0-44.9, adult; R79.89 Other specified abnormal findings of blood chemistry; F17.200 Nicotine dependence, unspecified, uncomplicated; R03.0 Elevated blood-pressure reading, without diagnosis of hypertension; Z13.220 Encounter for screening for lipoid disorders; R53.83 Other fatigue; L30.9 Dermatitis, unspecified

== ENCOUNTER → 2025-01-07 15:41 | Outpatient (BNVA) | payer OTHER, SELFPAY | PROVIDERS: PCP Internal Medicine | DX: F41.1 Generalized anxiety disorder (principal); M72.2 Plantar fascial fibromatosis; L30.9 Dermatitis, unspecified; R79.89 Other specified abnormal findings of blood chemistry; R03.0 Elevated blood-pressure reading, without diagnosis of hypertension; R53.83 Other fatigue; F17.210 Nicotine dependence, cigarettes, uncomplicated; E66.01 Morbid (severe) obesity due to excess calories; Z68.41 Body mass index [BMI] 40.0-44.9, adult | CPT/HCPCS: 96127; 99212 ==

== ENCOUNTER 2025-03-12 06:11 | Outpatient (REF) | payer OTHER, SELFPAY ==
[2025-03-12 10:08] LABS: MANUAL DIFF FLAG NO
[2025-03-12 10:10] LABS: Hematocrit 40.3 % (37.0-47.0); Hemoglobin 14.0 g/dl (12.0-16.0); Imm Gran Abs Auto 0.05 X10*3/uL (0.00-0.03); Imm Gran Pct Auto 0.5 % (0.0-0.4); Lymphocytes Absolute Auto 2.1 X10*3/uL (1.2-4.9); Mean Corpuscular HGB Conc 34.7 g/dl (31.0-35.0); Mean Corpuscular Hemoglobin 33.8 pg (27.0-33.0); Mean Corpuscular Volume 97.3 fL (80.0-98.0); NRBC Abs Auto 0.000 X10*3/uL (0.0-0.012); NRBC Pct Auto 0.0 /100WBC (0.0-0.2); Platelet Count 277 X10*3/uL (160-400); Red Blood Count 4.14 X10*6/uL (4.20-5.50); White Blood Count 10.4 X10*3/uL (4.8-10.8)
[2025-03-12 10:33] LABS: Hemoglobin A1C 124.4241 umol/L; Total Hemoglobin (HGBA1C) 3675.7022 umol/L
[2025-03-12 11:07] LABS: Alanine Aminotransferase 49 U/L (0-31); Albumin Level 4.4 g/dL (3.5-5.0); Alkaline Phosphatase 49 U/L (39-117); Anion Gap 12 (12-20); Aspartate Amino Transferase 22 U/L (5-31); Blood Urea Nitrogen 7 mg/dL (9-16); Calcium 8.9 mg/dL (8.4-10.2); Carbon Dioxide 23 mmol/L (22-29); Chloride 106 mmol/L (96-108); Cholesterol 178 mg/dL (<200); Estimated Glomerular Filt Rate > 60; Free T4 (Free Thyroxine) 1.17 ng/dL (0.71-1.85); HDL Cholesterol 30 mg/dL (>40); Iron 35 mcg/dL (30-160); Percent Iron Saturation 12 % (15-50); Potassium 4.0 mmol/L (3.3-5.1); Sodium 137 mmol/L (135-145); Total Iron Binding Capacity 292 mcg/dL (228-428); Total Protein 7.4 g/dL (6.5-8.0); Triglycerides 90 mg/dL (<150); Unsaturated Iron Binding 257 ug/dL
[2025-03-12 11:10] LABS: Folate < 2.2 ng/mL (> or = 4.0); Vitamin B12 591 pg/mL (200-900)
== END 2025-03-12 06:12 | disposition home or self-care (01) ==
LOC: HO.HMGCLDS 06:11
DX: Z00.00 Encounter for general adult medical examination without abnormal findings (principal); Z13.21 Encounter for screening for nutritional disorder; Z13.1 Encounter for screening for diabetes mellitus; Z13.220 Encounter for screening for lipoid disorders; E66.01 Morbid (severe) obesity due to excess calories; Z68.41 Body mass index [BMI] 40.0-44.9, adult; F41.1 Generalized anxiety disorder; R53.83 Other fatigue; R79.89 Other specified abnormal findings of blood chemistry
CPT/HCPCS: 36415; 80053; 80061; 82306; 82607; 82746; 83036; 83540; 84439; 84443; 85025

== ENCOUNTER 2025-03-14 15:52 | Outpatient (AMB) | payer OTHER, SELFPAY ==
--- NOTE | 2025-03-14 15:56 | A.OFFPC_ITS ---
Vital Signs 03/14/25 15:57 Height 5 ft 0.63 in Weight 203 lb 6 oz BMI 38.9 BP 136/90 H Blood Pressure Location Lt brachial Position Sitting Pulse 80 Pulse Source Pulse Oximeter Pulse Oximetry (%) 98 Oxygen Delivery Method Room Air Intake Visit Reasons: f/u blood pressure and blood work Costumed Character Entertainer Required: No Accompanied by: Self / Same As Patient Allergies latex (Latex) Allergy (Intermediate, Verified 03/14/25 15:59) ITCH/RASH acetaminophen (From Vicodin) Allergy (Verified 03/14/25 15:59) Vomiting hydrocodone (From Vicodin) Allergy (Verified 03/14/25 15:59) Vomiting morphine Allergy (Verified 03/14/25 15:59) Agitated Medication List - Last Reconciled 03/14/25 by Leela Garcia PA-C cholecalciferol (vitamin D3) 25 mcg PO DAILY famotidine 20 mg PO BEDTIME iron [id number] 150 mg iron- 60 mg-1 mg 1 tab PO DAILY loratadine (Allergy Relief (loratadine)) 10 mg PO DAILY PRN propranolol 10 mg PO BID triamcinolone acetonide 0.1% 1 appl topical DAILY Tobacco use date assessed: 03/14/25 Dental Screening Dental Screen Date: 03/14/25 Did you have a dental visit in the last 12 months?: Yes Did you have a dental problem in the last 6 months where you did not have access to dental care?: No Was dental information given to patient?: Patient has dentist HPI f/u blood pressure and blood work HPI Details 45-year-old female with past medical his tory of anxiety, eczema, obesity, LFT elevation and tobacco use disorder last seen 12/2024 coming in for follow up. Presenting with concerns about blood work results and deficiencies. Iron deficiency was identified with a level of 35, which is slightly below the normal range of 30 to 160. The patient was informed that her blood's iron saturation was low, indicating inadequate iron utilization. Folate levels were noted to be significantly low, necessitating supplementation. Vitamin D deficiency was also identified, and the patient was advised to supplement. Patient feels her anxiety is significantly improved since starting on the propranolol b.i.d. [facility] Medical History Breast lump on left side at 12 o'clock position Morbid obesity with BMI of 40.0-44.9, adult History of anxiety Surgical History H/O foot surgery History of loop electrosurgical excision procedure (LEEP) Social History Housing: House Alcohol intake: current Alcohol intake frequency: a few times a month Patient Tobacco Use Status: Current everyday Tobacco user Tobacco use type: Cigarette Cigarette Packs Per Day: 0.5 Cigarettes Per Day: 6 Years Smoked: 16 e-Cigarette/Vaping Use: Never Used Second Hand Smoke Exposure: Yes service: No Current occupational status: employed Cognitive needs: No Hearing needs: No Vision needs: No Questionnaire PHQ-9 Over the last 2 weeks, how often have you been bothered by any of the following problems? 1. Little interest or pleasure in doing things: not at all 2. Feeling down, depressed, or hopeless: not at all 3. Trouble falling or staying asleep, or sleeping too much: not at all 4. Feeling tired or having little energy: not at all 5. Poor appetite or overeating: not at all 6. Feeling bad about yourself - or that you are a failure or have let yourself or your family down: not at all 7. Trouble concentrating on things, such as reading the newspaper or watching television: not at all 8. Moving or speaking so slowly that other people could have noticed. Or the opposite - being so fidgety or restless that you have been moving around a lot more than usual: not at all 9. Thoughts that you would be better off or of hurting yourself in some way: not at all Total score: 0 Depression Screening Interpretation: Negative Depression Screening Done: Yes Source: Developed by Drs. Lupillo Anderson, Adwoa Kay, Margarito José and colleagues, with an educational zackary from [employer]. Thrive Questionnaire Date Thrive assessed: 12/31/24 I am a: Patient What is your living situation today?: I have a steady place to live Within the past 12 months, did the food you bought not last and you didn't have the money to get more?: Never true Within the past 12 months, did you worry whether your food would run out before you got money to buy more?: Never true Do you have trouble paying for medicines?: No Do you have trouble getting transportation to medical appointments?: No Do you have trouble paying your heating and electricity bill?: No Do you have trouble taking care of your child, family member or friend?: No Do you have trouble with day-to-day activities such as bathing, preparing meals, shopping, managing finances, etc.?: No Are you currently unemployed and looking for a job?: No Are you interested in more education?: No Please select the resources that you would like help with: None Currently or been in a relationship where the following occur: No concerns reported THRIVE Score: 0 AUDIT C Alcohol Use Questionnaire (AUDIT-C) 1. How often do you have a drink containing alcohol?: 2-4 times a month 2. How many drinks containing alcohol do you have on a typical day when you are drinking?: 3 or 4 3. How often do you have six or more drinks on one occasion?: Less than monthly Total Score: 4 Score Reviewed/Action Taken: Yes JUAN JOSÉ-7 AMB Questionnaire JUAN JOSÉ-7 Date JUAN JOSÉ - 7 assessed: 01/07/25 Feeling nervous, anxious, or on edge: 1 = Several days Not being able to stop or control worryin = Not at all Worrying too much about different things: 0 = Not at all Trouble relaxin = Not at all Being so restless that it is hard to sit still: 0 = Not at all Becoming easily annoyed or irritable: 0 = Not at all Feeling afraid as if something awful might happen: 1 = Several days Total JUAN JOSÉ-7 score (0-4 normal; 5-9 mild; 10-14 moderate; 15-21 severe): 2 Source: Developed by Drs. Lupillo Anderson, Adwoa Kay, Margarito José and colleagues, with an educational zackary from [employer]. Review of Systems Const Denies body aches, Denies chills, Denies fever(s), Denies headache(s) and Denies poor appetite Eyes Reports no additional complaints ENT Denies dizziness and Denies headache(s) Card Denies chest pain, Denies irregular heart rhythm, Denies lightheadedness and Denies dyspnea Resp Denies cough and Denies dyspnea Musc Reports no additional complaints and Denies abnormal gait Skin/Breast Reports system reviewed and no additional complaints, except as documented Neuro Denies abnormal gait, Denies dizziness and Denies headache(s) Psych Reports no additional complaints Physical exam (Primary Care) Vital Signs: Last Vital Signs Pulse 80 03/14/25 15:57 BP 136/90 H 03/14/25 15:57 Pulse Ox 98 03/14/25 15:57 Oxygen Delivery Method Room Air 03/14/25 15:57 BMI result Body Mass Index 38.9 Tobacco/Smoking Status: Tobacco use Status Tobacco use date assessed 03/14/25 03/14/25 16:04 Patient Tobacco Use Status Current everyday Tobacco 03/14/25 16:04 Tobacco use type Cigarette 03/14/25 16:04 e-Cigarette/Vaping Use Never Used 03/14/25 16:04 PHQ-9: PHQ-9 Score PHQ-9: Total score 0 03/14/25 16:04 Depression Screening Interpretation: Negative Thrive Assessment: Date of Thrive Assessment Date Thrive assessed 12/31/24 03/14/25 16:04 Currently or been in a relationship where the following occur: No concerns reported Const General: cooperative, healthy appearing, comfortable and no acute distress Orientation/consciousness: patient oriented x3 HENMT Head: Yes normocephalic Ears: hearing grossly normal bilaterally General nose exam: Normal external nose present Eyes General: appearance normal, both eyes and all related structures Conjunctivae: conjunctivae normal Neck Neck: Yes full ROM and Yes no lymphadenopathy Resp Effort & Inspection: normal respiratory effort Auscultation: clear to auscultation bilaterally, no crackles, no rales, no rhonchi and no wheezes Cardio Rate: regular rate Rhythm: regular rhythm Skin General skin exam: no rashes or lesions noted Neuro General: patient oriented x3 Gait exam (Neuro): Normal gait present Extrem General: Yes normal to inspection, Yes full ROM and No edema Psych Affect: normal affect Attitude: cooperative Insight: Good insight present (Psych) Judgement: Good judgement present (Psych) Coding Level of Care Code Est Pt Level 3 (47115) Diagnoses Anxiety, generalized F41.1 Morbid obesity with BMI of 40.0-44.9, adult E66.01; Z68.41 LFT elevation R79.89 Tobacco use disorder F17.200 Elevated blood pressure reading without diagnosis of hypertension R03.0 Vitamin D deficiency E55.9 Iron deficiency E61.1 Folate deficiency E53.8 Hypercholesterolemia E78.00 Assessment & Plan Assessment & Plan (1) Anxiety, generalized: Code(s): F41.1 - Generalized anxiety disorder Category: Medical Plan: Patient has been on propranolol b.i.d. and notes a significant improvement in her anxiety. She is happy on this dose and feels her anxiety is well managed at this time. Declining counseling (2) Morbid obesity with BMI of 40.0-44.9, adult: Code(s): E66.01 - Morbid (severe) obesity due to excess calories; Z68.41 - Body mass index [BMI] 40.0-44.9, adult Category: Medical Plan: Healthy diet and regular exercise is encouraged. (3) LFT elevation: Code(s): R79.89 - Other specified abnormal findings of blood chemistry Category: Medical Plan: LFTs elevated on last blood work. She is currently declining an abdominal ultrasound and plan to repeat blood work in 6 months and consider abdominal ultrasound if remains elevated (4) Tobacco use disorder: Code(s): F17.200 - Nicotine dependence, unspecified, uncomplicated Category: Medical Plan: Smoking cigarettes and the use of tobacco can be harmful. We discussed the importance of stopping and options to aid in smoking cessation. Declining nicotine replacement therapy and medical management at this time (5) Elevated blood pressure reading without diagnosis of hypertension: Code(s): R03.0 - Elevated blood-pressure reading, without diagnosis of hypertension Category: Medical Plan: Blood pressure in the office today when retaken 122/82 feels her anxiety is better managed noted in the improvement in the blood pressure. Propranolol may also be helping with the blood pressure to a small degree (6) Vitamin D deficiency: Code(s): E55.9 - Vitamin D deficiency, unspecified Category: Medical Plan: Patient has multiple vitamin deficiencies and prescriptions for supplements have been sent to pharmacy including ways she can increase his in her diet as well. Plan to repeat in 6 months (7) Iron deficiency: Code(s): E61.1 - Iron deficiency Category: Medical Plan: See above (8) Folate deficiency: Code(s): E53.8 - Deficiency of other specified B group vitamins Category: Medical Plan: See above (9) Hypercholesterolemia: Code(s): E78.00 - Pure hypercholesterolemia, unspecified Category: Medical Plan: Avoid foods that are high in cholesterol such as red meat, fried foods, eggs and baked goods. Triglyceride goal of less than 150 and LDL goal of less than 130. Cholesterol very mildly elevated discussed ways to bring the cholesterol down through diet and provided with resources. Plan I discussed with the patient the importance of addressing her iron, folate, and vitamin D deficiencies through appropriate supplementation. We reviewed the lab results, and I reassured her that there were no alarming findings. This note was constructed using voice recognition software. While every effort has been made to ensure accuracy and auto electrician, still areas may have been included sometimes these areas may affect the content or meeting of the given symptoms. Total time spent caring for the patient today was 20 minutes. This includes time spent before the visit reviewing the chart, time spent during the visit, and time spent after the visit and documentation. Patient was informed and verbally consented to the use of an ambient scribe for clinic note documentation during this visit. Orders: Orders Vitamin B12 and Folate 6 Months E53.8 - Deficiency of other specified B group vitamins, Z13.21 - Encounter for screening for nutritional disorder IRON PROFILE 6 Months E61.1 - Iron deficiency Lipid Panel 6 Months E78.00 - Pure hypercholesterolemia, unspecified Vitamin D 25-OH Total 6 Months E55.9 - Vitamin D deficiency, unspecified, Z13.21 - Encounter for screening for nutritional disorder Complete Blood Count Auto Diff 6 Months E61.1 - Iron deficiency, Z00.00 - En counter for general adult medical examination without abnormal findings Comprehensive Met. Panel 6 Months R79.89 - Other specified abnormal findings of blood chemistry, Z00.00 - Encounter for general adult medical examination without abnormal findings Medications: New iron,carbonyl-vitamin C 65 mg iron- 125 mg (Vitron-C) 1 tab PO BEDTIME 90 tabs 0RF vitamin B complex 1 tab PO DAILY 30 tabs 0RF Refilled propranolol 10 mg PO BID 180 tabs 1RF R79.89 - Other specified abnormal findings of blood chemistry loratadine (Allergy Relief (loratadine)) 10 mg PO DAILY PRN 90 tabs 3RF allergy symptoms R79.89 - Other specified abnormal findings of blood chemistry famotidine 20 mg PO BEDTIME 90 tabs 0RF R79.89 - Other specified abnormal findi ngs of blood chemistry Discontinued iron [id number] 150 mg iron- 60 mg-1 mg Discontinued Reason: Patient no longer taking 1 tab PO DAILY 30 tabs 0RF
[2025-03-14 15:57] VITALS: BP 136/90; PULSE 80; O2SAT 98; BMI 38.9
== END 2025-03-14 17:01 | disposition home or self-care (01) ==
LOC: HO.HMCH 15:53
PROVIDERS: PCP Internal Medicine
DX: F41.1 Generalized anxiety disorder (principal); E66.01 Morbid (severe) obesity due to excess calories; Z68.41 Body mass index [BMI] 40.0-44.9, adult; R79.89 Other specified abnormal findings of blood chemistry; F17.200 Nicotine dependence, unspecified, uncomplicated; R03.0 Elevated blood-pressure reading, without diagnosis of hypertension; E55.9 Vitamin D deficiency, unspecified; E61.1 Iron deficiency; E53.8 Deficiency of other specified B group vitamins; E78.00 Pure hypercholesterolemia, unspecified

== ENCOUNTER → 2025-03-14 15:52 | Outpatient (BNVA) | payer OTHER, SELFPAY | PROVIDERS: PCP Internal Medicine | DX: F41.1 Generalized anxiety disorder (principal); E66.01 Morbid (severe) obesity due to excess calories; R79.89 Other specified abnormal findings of blood chemistry; F17.210 Nicotine dependence, cigarettes, uncomplicated; R03.0 Elevated blood-pressure reading, without diagnosis of hypertension; E55.9 Vitamin D deficiency, unspecified; E61.1 Iron deficiency; E53.8 Deficiency of other specified B group vitamins; E78.00 Pure hypercholesterolemia, unspecified; Z68.38 Body mass index [BMI] 38.0-38.9, adult | CPT/HCPCS: 99212 ==